=== PATIENT | female | born 1985 | race Caucasian/White ===

== ENCOUNTER 2024-11-12 09:00 | Outpatient (RCR) | payer OTHER, SELFPAY ==
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
--- NOTE | 2024-12-10 07:51 | MHC.PT.DC ---
[facility] [place] Office [place] Office [place] Office [address] Gar[address] [phone] F: [phone] F: [phone] F: [phone] F: [phone] Physical Therapy Discharge Report Diagnosis: This is a 39 yo female presenting to skilled PT with a script for patellofemoral arthritis of R knee. Date of Surgery: Date of Evaluation: 10/08/24 Date of Discharge: 12/10/24 Treatments to Date: 7 Cancellations to Date: 0 No Shows to Date: 0 Discharge Status: Independent with HEP Recommend MD Follow-up Discharge Summary: 11/12: Patient has come to 7 PT appointments. She continues to have the same pain. I educated her on an HEP to continue, tens unit, knee peddler and wobble board as tools for home use as well. She would benefit from further assessment by MD. DC to HEP. Electronically signed by: Rosemary Barragan PT Please sign and return to therapist. Thank you for your referral.
== END 2024-12-10 07:52 | disposition home or self-care (01) ==
LOC: HO.PTCHIC 09:00
PROVIDERS: PCP Internal Medicine; Visit Provider Physician Assistant
DX: M17.11 Unilateral primary osteoarthritis, right knee (principal)
CPT/HCPCS: 97110; 97162